=== PATIENT | female | born 1985 | race Two or more races ===

== ENCOUNTER 2016-09-01 11:14 | Emergency (ER) | payer MEDICAID ==
[~2016-09-01] VITALS: Ht 160 cm; Wt 68.9 kg
[2016-09-01 12:21] VITALS: BP 124/82
== END 2016-09-01 12:56 | disposition home or self-care (01) ==
LOC: ER 11:14
DX: S01.531A Puncture wound without foreign body of lip, initial encounter (principal); F41.9 Anxiety disorder, unspecified; W01.0XXA Fall on same level from slipping, tripping and stumbling without subsequent striking against object, initial encounter; Y93.89 Activity, other specified; Y99.8 Other external cause status; Y92.099 Unspecified place in other non-institutional residence as the place of occurrence of the external cause

== ENCOUNTER 2016-12-16 21:20 | Emergency (ER) | payer MEDICAID ==
[~2016-12-16] VITALS: Ht 160 cm; Wt 70.3 kg
[2016-12-16 22:03] VITALS: BP 145/84
[2016-12-17] MEDS ORDERED: KETOROLAC TROMETH 60MG/2ML VIAL IM ONE
[2016-12-17] MEDS ORDERED: methylPREDNISolone SOD SUCC 125 MG/2 ML VL IM ONE
== END 2016-12-17 00:25 | disposition home or self-care (01) ==
LOC: ER 21:24
DX: S33.5XXA Sprain of ligaments of lumbar spine, initial encounter (principal); K59.00 Constipation, unspecified; M79.1 Myalgia; X50.9XXA Other and unspecified overexertion or strenuous movements or postures, initial encounter; Y93.89 Activity, other specified; Y99.8 Other external cause status; Y92.89 Other specified places as the place of occurrence of the external cause
CPT/HCPCS: 72100; 81025; 96372; 99285; J1885; J2930

== ENCOUNTER 2019-12-12 20:21 | Emergency (ER) | payer MEDICAID ==
[~2019-12-12] VITALS: Ht 160 cm; Wt 68.0 kg
[2019-12-12] MEDS ORDERED: methylPREDNISolone SOD SUCC 125 MG/2 ML VL IM ONE (22:30)
[2019-12-12] MEDS ORDERED: KETOROLAC TROMETH 60MG/2ML VIAL IM ONE (22:30)
[2019-12-12 23:14] VITALS: BP 118/67
== END 2019-12-12 23:29 | disposition home or self-care (01) ==
LOC: ER 20:23
DX: S16.1XXA Strain of muscle, fascia and tendon at neck level, initial encounter (principal); M62.838 Other muscle spasm; X58.XXXA Exposure to other specified factors, initial encounter; Y93.89 Activity, other specified; Y92.89 Other specified places as the place of occurrence of the external cause; Y99.8 Other external cause status
CPT/HCPCS: 96372; 99284; J1885; J2930

== ENCOUNTER 2020-07-09 19:34 | Emergency (ER) | payer MEDICAID, OTHER, SELFPAY ==
[~2020-07-09] VITALS: Ht 160 cm; Wt 67.1 kg
[2020-07-09] MEDS ORDERED: LORazepam 0.5 MG TAB PO ONE (19:45)
[2020-07-09 23:02] VITALS: BP 113/68
== END 2020-07-09 23:05 | disposition home or self-care (01) ==
LOC: ER 19:34
DX: F41.9 Anxiety disorder, unspecified (principal); Z20.822 Contact with and (suspected) exposure to COVID-19
CPT/HCPCS: 36415; 71045; 81025; 87426

== ENCOUNTER 2021-07-01 21:50 | Emergency (ER) | payer MEDICAID, OTHER ==
[~2021-07-01] VITALS: Ht 157.5 cm; Wt 70.3 kg
[2021-07-01 21:53] VITALS: BP 123/84
[2021-07-02] MEDS ORDERED: KETOROLAC TROMETH 30 MG/ML 1ML VIAL IM ONE (00:45)
[2021-07-02] MEDS ORDERED: predniSONE 20 MG TAB PO ONE (00:45)
[2021-07-02] MEDS ORDERED: NAP500T PO (01:17)
[2021-07-02] MEDS ORDERED: MENTCRE10 EX (01:19)
[2021-07-02] MEDS ORDERED: PRED20TA2 PO (01:19)
== END 2021-07-02 01:29 | disposition home or self-care (01) ==
LOC: ER 21:50
DX: M54.9 Dorsalgia, unspecified (principal); R20.2 Paresthesia of skin; Z79.899 Other long term (current) drug therapy
CPT/HCPCS: 81025; 96372; 99283; J1885; J7512

== ENCOUNTER 2022-01-06 20:08 | Emergency (ER) | payer MEDICAID ==
[~2022-01-06] VITALS: Ht 160 cm; Wt 70.0 kg
[~2022-01-06 20:08] MED LIST: MENTCRE10 EX; NAP500T PO; PRED20TA2 PO
[2022-01-06 22:36] LABS: Basophils # (auto) 0 10 ^3/uL (0-0.2); Basophils % (auto) 0.2 % (0.0-2.0); Eosinophils # (auto) 0 10 ^3/uL (0-0.8); Eosinophils % (auto) 0.6 % (0.0-7.0); Hemoglobin 13.6 g/dL (12.2-16.2); Lymphocytes # (auto) 2.4 10 ^3/uL (0.4-5.4); Lymphocytes % (auto) 37.3 % (10.0-50.0); Mean Corpuscular Hemoglobin 34.9 pg (28.0-32.0); Mean Corpuscular Hgb Conc. 34.9 g/dL (32.0-36.0); Mean Corpuscular Volume 99.9 fL (80.0-100.0); Monocytes # (auto) 0.4 10 ^3/uL (0-1.3); Monocytes % (auto) 5.9 % (0.0-12.0); Neutrophils # (auto) 3.6 10 ^3/uL (1.6-8.6); Nucleated Red Blood Cells % 0.1 %; Red Cell Distribution Width 12.2 % (11.8-14.3); White Blood Cell 6.5 10^3/uL (4.4-10.8)
[2022-01-06 22:44] LABS: Urine Bacteria FEW /hpf (None Seen); Urine Blood Negative /uL (Negative); Urine Hyaline Cast FEW /lpf (0 - 2); Urine Mucus FEW (None Seen); Urine Specific Gravity 1.023 (1.001-1.035); Urine WBC 37 /hpf (0 - 5)
[2022-01-06 23:03] LABS: Albumin 3.8 g/dL (3.4-5.0); Calcium 8.8 mg/dL (8.5-10.1); Potassium 4.2 mmol/L (3.5-5.1)
[2022-01-06 23:06] LABS: BUN/Creatinine Ratio 16.3
[2022-01-06 23:08] LABS: Bilirubin, Total 0.3 mg/dL (0.2-1.0); Total Protein 7.6 g/dL (6.4-8.2)
[2022-01-07 04:43] VITALS: BP 121/70
== END 2022-01-07 06:16 | disposition home or self-care (01) ==
LOC: ER 20:08
DX: R53.1 Weakness (principal); F41.9 Anxiety disorder, unspecified; Z79.899 Other long term (current) drug therapy; Z20.822 Contact with and (suspected) exposure to COVID-19
CPT/HCPCS: 36415; 70450; 71045; 80053; 81001; 83690; 84443; 84484; 85025; 93005

== ENCOUNTER 2022-07-10 10:56 | Emergency (ER) | payer MEDICAID ==
[~2022-07-10] VITALS: Ht 160 cm; Wt 71.8 kg
[2022-07-10 11:46] VITALS: BP 124/77
[2022-07-10] MEDS ORDERED: ACET-1080 PO (14:05)
[2022-07-10] MEDS ORDERED: AZIT500T66 PO (14:05)
== END 2022-07-10 14:14 | disposition home or self-care (01) ==
LOC: ER 10:56
DX: U07.1 COVID-19 (principal); J03.90 Acute tonsillitis, unspecified; H66.91 Otitis media, unspecified, right ear
CPT/HCPCS: 36415; 71045; 87426; 87804